=== PATIENT | male | born 1995 | race Two or more races ===

== ENCOUNTER 2021-08-12 22:51 | Emergency (ER) | payer SELFPAY ==
[~2021-08-12] VITALS: Ht 185.4 cm; Wt 75.0 kg
[2021-08-12 23:51] LABS: BASOPHILS % 0.6 % (0.0-2.0); EOSINOPHILS % 0.8 % (0.0-5.0); HEMATOCRIT. 45.7 % (42.0-52.0); HEMOGLOBIN. 15.6 g/dL (14.0-18.0); LYMPHOCYTES % 26.1 % (20.0-50.0); MEAN CORPUSCULAR HEMOGLOBIN 28.8 pg (28.0-32.0); MEAN CORPUSCULAR VOLUME 84.4 fL (80.0-94.0); MONOCYTES % 6.9 % (2.0-8.0); NEUTROPHILS % 65.6 % (40.0-76.0); PLATELET 208 x1000/uL (130-400); RED BLOOD CELL COUNT 5.41 mill/uL (4.7-6.1); RED CELL DISTRIBUTION WIDTH 13.5 % (11.6-14.6)
[2021-08-12 23:58] LABS: CHLORIDE 108 mEq/L (98-107)
[2021-08-13 00:02] LABS: ETHANOL BLOOD < 10 mg/dL
[2021-08-13 02:20] VITALS: BP 122/61
== END 2021-08-13 02:32 | disposition home or self-care (01) ==
LOC: ER 22:51
DX: R07.89 Other chest pain (principal); R06.02 Shortness of breath; I49.9 Cardiac arrhythmia, unspecified; R00.0 Tachycardia, unspecified; Z98.890 Other specified postprocedural states
CPT/HCPCS: 36415; 71045; 80053; 80320; 83880; 84484; 85025; 93005; 99285; G0480